=== PATIENT | male | born 1970 | race Caucasian/White ===

== ENCOUNTER 2019-02-05 00:44 | Outpatient (CLI) | payer BC | END 2019-02-05 23:59 | disposition home or self-care (01) | LOC: DIABETIC 00:44 | PROVIDERS: ATTEND Specialist | DX: E10.65 Type 1 diabetes mellitus with hyperglycemia (principal); Z71.3 Dietary counseling and surveillance | CPT/HCPCS: G0108 ==

== ENCOUNTER 2019-04-19 00:28 | Outpatient (CLI) | payer BC | END 2019-04-19 23:59 | disposition home or self-care (01) | LOC: DIABETIC 00:28 | PROVIDERS: ATTEND Specialist | DX: E10.65 Type 1 diabetes mellitus with hyperglycemia (principal); Z79.4 Long term (current) use of insulin; Z79.899 Other long term (current) drug therapy | CPT/HCPCS: G0108 ==